=== PATIENT | female | born 1990 | race Caucasian/White ===

== ENCOUNTER 2023-04-26 17:14 | Emergency (ER) | payer MEDICAID ==
[~2023-04-26] VITALS: Ht 165.1 cm; Wt 118.8 kg
[2023-04-26 17:41] VITALS: BP 149/70; PULSE 71; RESP 20; TEMP 98; O2SAT 99
[2023-04-26] MEDS ORDERED: IBUPROFEN 600 MG TAB PO ONE (18:40)
[2023-04-26] MEDS ORDERED: cephALEXin 500 MG CAP PO ONE (18:40)
--- NOTE | 2023-04-26 18:47 | NUR ---
SEEN AND EXAMINED BY ILEANA FALK
[2023-04-26] MEDS ORDERED: IBUP-2213 PO (18:57)
[2023-04-26] MEDS ORDERED: CLIN300C2 PO (18:57)
--- NOTE | 2023-04-26 19:32 | NUR ---
orthopedic foot brace given to patient.
[2023-04-26 20:05] VITALS: BP 149/70; PULSE 71; RESP 20; TEMP 98; O2SAT 99
--- NOTE | 2023-04-26 20:05 | NUR ---
Patient discharged with v/s stable. Written and verbal after care instructions given and explained. Patient alert, oriented and verbalized understanding of instructions. Ambulatory with steady gait. All questions addressed prior to discharge. ID band removed. Patient advised to follow up with PMD. Rx of CLEOCIN, IBUPROFEN given. Patient educated on indication of medication including possible reaction and side effects. Opportunity to ask questions provided and answered.
== END 2023-04-26 20:05 | disposition home or self-care (01) ==
LOC: MED 17:14
DX: S91.132A Puncture wound without foreign body of left great toe without damage to nail, initial encounter (principal); Z88.0 Allergy status to penicillin; Z88.1 Allergy status to other antibiotic agents; Z79.899 Other long term (current) drug therapy; X58.XXXA Exposure to other specified factors, initial encounter; Y93.89 Activity, other specified; Y92.89 Other specified places as the place of occurrence of the external cause; Y99.8 Other external cause status
CPT/HCPCS: 99283

== ENCOUNTER 2023-07-08 15:33 | Emergency (ER) | payer MEDICAID ==
[~2023-07-08] VITALS: Ht 165.1 cm; Wt 112.0 kg
[~2023-07-08 15:33] MED LIST: CLIN300C2 PO; IBUP-2213 PO
[2023-07-08 15:51] VITALS: BP 140/80; PULSE 67; RESP 18; TEMP 98.3; O2SAT 95
== END 2023-07-08 16:55 | disposition home or self-care (01) ==
LOC: MED 15:33
DX: J06.9 Acute upper respiratory infection, unspecified (principal); Z79.1 Long term (current) use of non-steroidal anti-inflammatories (NSAID); Z79.2 Long term (current) use of antibiotics; Z88.0 Allergy status to penicillin
CPT/HCPCS: 99281

== ENCOUNTER 2023-09-07 19:45 | Emergency (ER) | payer MEDICAID, OTHER ==
[~2023-09-07] VITALS: Ht 165.1 cm; Wt 108.9 kg
[2023-09-07 19:51] VITALS: BP 127/74; PULSE 74; RESP 16; TEMP 97.8; O2SAT 100
[2023-09-07 20:50] LABS: FLU A ANTIGEN negative (NEGATIVE); FLU B ANTIGEN negative (NEGATIVE)
[2023-09-07] MEDS ORDERED: PRED20TA5 PO (21:05)
[2023-09-07] MEDS ORDERED: IBUP-2213 PO (21:05)
[2023-09-07 21:18] VITALS: BP 127/74; PULSE 74; RESP 16; TEMP 97.8; O2SAT 100
== END 2023-09-07 21:19 | disposition home or self-care (01) ==
LOC: MED 19:45
DX: J02.9 Acute pharyngitis, unspecified (principal); Z20.822 Contact with and (suspected) exposure to COVID-19; Z98.890 Other specified postprocedural states; Z79.1 Long term (current) use of non-steroidal anti-inflammatories (NSAID); Z79.2 Long term (current) use of antibiotics; Z88.0 Allergy status to penicillin
CPT/HCPCS: 99283